=== PATIENT | male | born 1985 | race Hispanic/Latino ===

== ENCOUNTER 2016-08-22 19:08 | Emergency (ER) | payer OTHER ==
[~2016-08-22] VITALS: Ht 177.8 cm; Wt 61.2 kg
[~2016-08-22 19:08] MED LIST: ATIVAN1 M1 PO; BACTROBAN OINT.22 GM TOP; MOTRIN800 MG PO; TRAMADOL50 MG PO; VIBRAMYCIN 100100 MG PO; ZOFRAN ODT4 M1 SL
--- NOTE | 2016-08-22 19:40 | ED HAND/WRIST INJURY COMPLAINT ---
History of Present Illness General Chief Complaint: Laceration Procedure Stated Complaint: HAND COUGHT IN RETREAD SUPERVISOR Source: patient, family, old records Exam Limitations: no limitations Vital Signs & Intake/Output Vital Signs & Intake/Output Vital Signs Date Time Temp Pulse Resp B/P Pulse O2 O2 Flow FiO2 Ox Delivery Rate 08/22 2108 98.7 76 18 149/90 98 Room Air 08/22 2030 Room Air 08/22 1911 98.6 96 18 158/95 100 Room Air ED Intake and Output 08/23 0000 08/22 1200 Intake Total Output Total Balance Patient 135 lb Weight Allergies Coded Allergies: NO KNOWN ALLERGIES (08/22/16) Reconcile Medications Amoxicillin/Potassium Clav (Augmentin 875-125 Tablet) 875 MG-125 MG TABLET 1 TAB PO BID ppx Oxycodone HCl/Acetaminophen (Percocet 5-325 MG Tablet) 5 MG-325 MG TABLET 1 TAB PO BID PRN pain Triage Note: PT TO [facility] AFTER PUTTING HAND IN RETREAD SUPERVISOR BY ACCIDENT. PT STATES HE BELIEVED HIS RETREAD SUPERVISOR HAD A SCREEN ON IT, IT BECAME CLOGGED. PT THEN STATES "I MUST HAVE STUCK MY HAND IN TOO DEEP". PT LEFT HAND MIDDLE FINGER HAD TIP OF FINGER CUT OFF, PT HAS LACERATIONS TO INDEX, MIDDLE, AND RING FINGERS ON LEFT HAND. Triage Nurses Notes Reviewed? yes Occurred: just prior to arrival Duration: hour(s): (1), constant Timing: recent history Injury Environment: home Severity: moderate, severe Severity Numbers: 10 Pain/Injury Location: Right: 2nd finger, 3rd finger, 4th finger. Context: laceration Method of Injury: laceration Modifying Factors: Improves With: rest. Worsens With: movement. Associated Symptoms: none HPI: 30-year-old male with no medical history presents to emergency room status post sustaining injury to his right hand when he stuck it into a snowblower sustaining injury to his right second third and fourth finger. He is right-hand dominant. His last tetanus is unknown. He now presents complaining of 10 out of 10 severe aching throbbing nonradiating pain. He is not taken anything for his symptoms. He denies any numbness or tingling or difficulty with range of motion of his fingers. There are no other modifying factors or associated symptoms otherwise (EARL GUTIERREZ,ARELI) Past History Travel History Traveled to [place] past 21 day No Medical History Any Pertinent Medical History? see below for history Neurological: NONE EENT: NONE Respiratory: asthma Surgical History Surgical History: non-contributory Psychosocial History What is your primary language Indonesian Tobacco Use: Current Not Daily Family History Hx Contributory? No (ARELI SARMIENTO) Review of Systems Review of Systems Constitutional: Reports: see HPI. All Other Systems: Reviewed and Negative Comments Review of systems: See HPI, All other systems negative. Constitutional, no chills no fever, no malaise HEENT: No visual changes no sore throat no congestion Cardiovascular: No chest pain , no palpitation Skin, no rashes, no change in skin Respiratory: No dyspnea no cough no sputum GI: No nausea no vomiting, no diarrhea, : No dysuria Muscle skeletal: joint pain, no joint swelling, no back pain, no neck pain, Neurologic: No numbness no headache Psych: No stress Heme/endocrine: No bruising no bleeding Immunology: No lymphadenopathy (ARELI ASRMIENTO) Physical Exam Physical Exam General Appearance: well developed/nourished, alert, awake Hand Left: normal inspection, normal range of motion Hand Right: deformity, lacerations, nail injury, 2nd finger, 3rd finger, 4th finger Comments: Well-developed well-nourished person in no acute distress HEENT: Normal EENT exam; PERRL, EOMI. HEAD is atraumatic. moist mucous membranes. Neck: Supple, normal range of motion Back: Nontender. Full range of motion Cardiovascular: Regular rate and rhythms no murmurs Respiratory: No respiratory distress. Patient speaking in full complete sentences. Breath sounds clear to auscultation bilaterally: NO W/R/R Shoulder: Atraumatic/Stable. FROM . Elbow: Atraumatic/stable. FROM. No laxity Upper arm/Forearm: Atraumatic. Nontender. No edema, 5 out of 5 inventory control specialist strength noted to bilateral upper extremities Hand/Wrist: Full range of motion of all fingers there is normal sensation to the distal aspects of the right second third and fourth finger, there is a 1 cm superficial linear laceration noted over the dorsal DIP of the right second finger, there is a 1 cm superficial linear laceration noted over the DIP of the right third and fourth fingers, there is a partial amputation of the distal aspect of the right third finger involving the distal half of the nail, the proximal nail bed is intact, there is no bone exposed. Sensation, positive active bleeding the rest of the hand is atraumatic Refills within normal limits TV right first second fourth and fifth finger Pulses: Normal/equal radial pulses bilaterally. Brisk cap refill Lower Extremity: No edema, full range of motion of extremitie Neuro: Alert oriented x3, motor sensory normal,. There were no obvious focal neurologic abnormalities. Skin: No appreciable rash on exposed skin, skin is warm and dry. Psych: Mood and affect is normal, memory and judgment is normal. (ARELI SARMIENTO) Progress Differential Diagnosis: compartment syndrome, dislocation, fracture, sprain Plan of Care: Orders Procedure Date/time Status Saline Lock 08/22 1938 Active X-ray ordered patient is medicated with Unasyn 3 g IV morphine 4 mg IV ordered tetanus ordered case and x-ray was reviewed with Dr. Delvalle agrees with plan. We currently do not have anyone on-call for plastics a call was attempted to be made to the Dr. Angel Ramey MD without return. I discussed with the patient at length plan of care. Dressings were provided for the patient to go home with, as well as information for Dr. Ferrer which I informed the patient to call him tomorrow. After verbal consent was obtained digital block was performed to the right second and third finger lidocaine 1% 5 mL, sutures 3 3-0 were administered by myself to the right third finger Dermabond was applied to the lacerations to the right second and fourth fingers sterile dressings and finger splint were applied (ARELI SARMIENTO) Diagnostic Imaging: Viewed by Me: Radiology Read. Discussed w/RAD: Radiology Read. Radiology Impression: PATIENT: JUANPABLO DE LA GARZA PRESENT AGE: 30 PATIENT ACCOUNT NO: [id number] : 87 LOCATION: [facility] ORDERING PHYSICIAN: ARELI GUTIERREZ SERVICE DATE: 08/22/16-1938 EXAM TYPE: RAD - XRY- HAND, RIGHT EXAMINATION: XR HAND, RIGHT CLINICAL INFORMATION: Status post snowblower injury. COMPARISON: None TECHNIQUE: AP, lateral, and oblique views of the right hand. FINDINGS: There is a transverse fracture through the distal diaphysis of the middle phalanx of the second digit with angulation at the fracture site. There is no oblique transverse fracture through the mid shaft of the diaphysis of the middle phalanx of the third digit. There is a comminuted partial avulsion fracture at the terminal tuft of the third digit as well with a gaping laceration across the tip of the third digit. There is a chronic fracture deformity of the fifth metacarpal head with mild angulation. No subluxations are seen. Bony mineralization is normal. IMPRESSION: Oblique transverse fractures through the middle phalanges of the second and third digits with surrounding soft tissue injury and mild angulation. Comminuted partial avulsion fracture with a large laceration at the tip of the third digit. DICTATED BY: NING BYRD MD DATE/TIME DICTATED:08/22/162026 HAND [employer]:ISHAAN DATE/TIME TRANSCRIBED:08/22/162026 CONFIDENTIAL, DO NOT COPY WITHOUT APPROPRIATE AUTHORIZATION. <Electronically signed in Other Vendor System> SIGNED BY: NING BYRD MD 08/22/162032 (ARELI SARMIENTO) Departure Departure Time of Disposition: 2054 Disposition: HOME OR SELF CARE Condition: Stable Clinical Impression Primary Impression: Finger laceration Secondary Impressions: Finger fracture, right Referrals: BESSY FERRER MD PATIENT HAS NO PRIMARY CARE DR (PCP/Family) Additional Instructions: Augmentin as discussed for wound prophylaxis Percocet for breakthrough pain use caution as this may make you drowsy. Keep finger splinted. Apply dressings as discussed follow-up with hand specialist Dr. Ferrer tomorrow, return anytime sooner with any concerns including signs of infection: Redness warmth swelling discharge fever or chills these prescriptions were sent here pharmacy Keep area clean and covered as discussed, bacitracin daily. Return to ER in 7- 10 days for suture removal. The possibility of a retained foreign body not seen during examination today or deep tendon injury exists. Return to ER anytime sooner with any concerns or signs of infection: Redness, warmth, swelling discharge fever or chills. Departure Forms: Customer Survey General Discharge Information Prescriptions: Current Visit Scripts Amoxicillin/Potassium Clav (Augmentin 875-125 Tablet) 1 TAB PO BID #14 TAB Oxycodone HCl/Acetaminophen (Percocet 5-325 MG Tablet) 1 TAB PO BID PRN pain #15 TAB (ARELI SARMIENTO) PA/BOILER HOUSE MECHANIC Co-Sign Statement Statement: ED Attending supervision documentation- [] I saw and evaluated the patient. I have also reviewed all the pertinent lab results and diagnostic results. I agree with the findings and the plan of care as documented in the PA's/BOILER HOUSE MECHANIC's documentation. [X] I have reviewed the ED Record and agree with the PA's/BOILER HOUSE MECHANIC's documentation. [] Additions or exceptions (if any) to the PAs/BOILER HOUSE MECHANIC's note and plan are summarized below: [] (ROBBY ASTORGA,NING Augustine) Procedures Laceration/Wound Repair Laceration/Wound Repair: 1 Wound Location: upper extremity (r 3rd) Wound's Depth, Shape: linear, superficial Wound Length (cm): 1 Wound Explored: clean, irrigated extensively Irrigated w/ Saline (ccs): 300 Betadine Prep? Yes Anesthesia: digit block Volume Anesthetic (ccs): 5 Wound Repaired With: sutures Suture Size/Type: 3:0 Number of Sutures: 3 Layer Closure? No Sterile Dressing Applied: Yes Splint Applied? Yes By Who? by me Type of Splint Applied: finger splint Tetanus Status: not up to date Laceration/Wound Repair: 2 Wound Location: upper extremity (right 2nd finger) Wound's Depth, Shape: linear, superficial Wound Length (cm): 1 Wound Explored: clean, irrigated extensively Irrigated w/ Saline (ccs): 300 Betadine Prep? Yes Anesthesia: digit block Volume Anesthetic (ccs): 5 Wound Repaired With: Dermabond Sterile Dressing Applied: Yes Splint Applied? Yes Laceration/Wound Repair: 3 Wound Location: upper extremity (r 4th finger) Wound's Depth, Shape: linear Wound Length (cm): 1 Wound Explored: clean, no foreign body removed, irrigated extensively Irrigated w/ Saline (ccs): 300 Betadine Prep? Yes Wound Repaired With: Dermabond Sterile Dressing Applied: Yes (ARELI SARMIENTO)
--- NOTE | 2016-08-22 20:33 | RADIOLOGY REPORT ---
EXAMINATION: XR HAND, RIGHT CLINICAL INFORMATION: Status post snowblower injury. COMPARISON: None TECHNIQUE: AP, lateral, and oblique views of the right hand. FINDINGS: There is a transverse fracture through the distal diaphysis of the middle phalanx of the second digit with angulation at the fracture site. There is no oblique transverse fracture through the mid shaft of the diaphysis of the middle phalanx of the third digit. There is a comminuted partial avulsion fracture at the terminal tuft of the third digit as well with a gaping laceration across the tip of the third digit. There is a chronic fracture deformity of the fifth metacarpal head with mild angulation. No subluxations are seen. Bony mineralization is normal. IMPRESSION: Oblique transverse fractures through the middle phalanges of the second and third digits with surrounding soft tissue injury and mild angulation. Comminuted partial avulsion fracture with a large laceration at the tip of the third digit.
[2016-08-22] MEDS ORDERED: AUGMENTIN 875-1 EACH PO (20:57)
[2016-08-22] MEDS ORDERED: PERCOCET 5-3251 EACH PO (20:57)
[2016-08-22 21:09] VITALS: BP 149/90
== END 2016-08-22 21:10 ==
LOC: ERH 19:08
DX: S62.620A Displaced fracture of middle phalanx of right index finger, initial encounter for closed fracture (principal); S62.622A Displaced fracture of middle phalanx of right middle finger, initial encounter for closed fracture; S61.210A Laceration without foreign body of right index finger without damage to nail, initial encounter; S61.212A Laceration without foreign body of right middle finger without damage to nail, initial encounter; W31.89XA Contact with other specified machinery, initial encounter; Y93.H1 Activity, digging, shoveling and raking
CPT/HCPCS: 73130-RT; 90471; 90714; 96374; 96375